=== PATIENT | female | born 1980 | race Caucasian/White ===

== ENCOUNTER 2024-05-23 08:25 | Emergency (ER) | payer BC, SELFPAY ==
[2024-05-23 08:31] VITALS: BP 100/75
[2024-05-23 09:23] VITALS: BP 105/62
[2024-05-23 09:25] LABS: Urine Albumin 1+ (Neg - Trace); Urine Bilirubin Negative (Negative); Urine Character Clear (Clear); Urine Color Amber; Urine Glucose Negative (Negative); Urine Ketone Negative (Negative); Urine Leukocyte Negative (Negative); Urine Nitrite Positive (Negative); Urine Occult Blood 4+ (Negative); Urine Specific Gravity 1.025 (<1.030); Urine Urobilinogen 1+ (Neg - 1+)
[2024-05-23] MEDS: NSS 1000 IV (09:25)
[2024-05-23] MEDS: DILAUDID 1 MG IV (09:26)
[2024-05-23] MEDS: ZOFRAN 4 MG IV (09:26)
[2024-05-23 09:47] LABS: % Basophils 0.7 % (0-2); % Eosinophils 1.1 % (0-6); % Immature Granulocytes 0.3 % (0-0.5); % Monocytes 9.9 % (1.7-9.3); Absolute Basophils 0.1 10^3/uL (0-0.2); Absolute Eosinophils 0.1 10^3/uL (0-0.7); Absolute Lymphocytes 1.6 10^3/uL (1.2-3.4); Absolute Monocytes 0.7 10^3/uL (0.1-0.6); Absolute Neutrophils 4.9 10^3/uL (1.4-6.5); Hematocrit 36.3 % (37.0-47.0); Hemoglobin 12.5 g/dL (12.0-16.0); Mean Corp Hgb Conc. 34.4 g/dL (33.0-37.0); Mean Corpuscular Hgb 28.5 pg (27.0-31.0); Mean Corpuscular Volume 82.7 fL (81.0-99.0); Mean Platelet Volume 10.7 fL (7.4-10.4); Nucleated Red Blood Cells % 0 %; Platelet Count 198 10^3/uL (130-400); Red Blood Cell Count 4.39 10^6/uL (4.20-5.40); Red Cell Dist. Width 14.2 % (11.5-14.5); White Blood Cell Count 7.4 10^3/uL (4.8-10.8)
[2024-05-23 09:54] LABS: ALT (SGPT) 20 U/L (0-35); AST (SGOT) 29 U/L (14-36); Alkaline Phosphatase 144 U/L (38-126); Blood Urea Nitrogen 15 mg/dl (7-17); Calcium 9.9 mg/dl (8.4-10.2); Carbon Dioxide 24 mmol/L (22-30); Chloride 106 mmol/L (98-107); Glucose 115 mg/dl (70-99); Potassium 3.9 mmol/L (3.5-5.1); Sodium 141 mmol/L (135-145); Total Bilirubin 0.7 mg/dl (0.2-1.3); Total Protein 7.9 g/dl (6.3-8.2); eGFR > 60.00
[2024-05-23 10:00] VITALS: BP 93/49
[2024-05-23 10:10] LABS: Urine Squamous Cell 0-2 /LPF (Few)
[2024-05-23 10:13] LABS: Urine Mucus Moderate; Urine Red Blood Cell >100 /HPF (0-2)
[2024-05-23 10:14] LABS: Urine Bacteria Few (Negative)
[2024-05-23 10:14] LABS: Lipase 83 U/L (23-300)
--- NOTE | 2024-05-23 10:38 | ED.GENMED ---
History of Present Illness
General
Chief Complaint: Abdominal Symptoms
Source: patient
Exam Limitations: none
Time Seen by Provider: 05/23/24 09:09
Nursing documentation reviewed up to this point in time: agreed with
History of Present Illness
History of Present Illness:
43 yo female w h/o kidney stones, partial colon resection with colostomy then reversal 11/2023 presents for severe R flank and abdominal pain started mildly yesterday and at 5 a.m. suddenly worsened, now 12/03 with nausea and vomiting. Denies
fever/chills.
Past History
Past History
ED Past Medical History: Other (Kidney stones)
ED Past Surgical History: Bowel resection
Social History
Tobacco: Non-smoker
Alcohol: Occasional
Personal:
Living: with family
Review of Systems
Review of Systems
Allergies reviewed?: Yes
All Other Systems: ROS reviewed and negative except as documented in HPI and ROS
Constitutional: Denies fever or chills
Respiratory: Denies trouble breathing
Cardiac: Denies chest pain
ABD/GI: Reports abdominal pain, nausea and vomiting; Denies diarrhea or constipated
: Reports flank pain (Right); Denies dysuria, frequency or difficulty voiding
Musculoskeletal: Reports no symptoms
Skin: Reports no symptoms
Neurological: Reports no symptoms
Phy Exam
Physical Exam
Physical Exam:
GENERAL: Moderate distress due to pain. A&Ox3.
CONSTITUTIONAL: Afebrile.
EYES: clear, conjunctivae normal
ENMT: moist mucus membranes, Pharynx nl
RESPIRATORY: Regular respirations, nonlabored, lungs clear.
CARDIOVASCULAR: Regular rate and rhythm, no murmurs, no rubs.
GI: Soft, nontender, normal BS, Right flank tenderness
MUSCULOSKELETAL: Moves with ease. Well perfused.
SKIN: Warm, dry, pink
PSYCH:Anxious mood and affect. Well kept, interactive and appropriate
NEUROLOGIC: Awake, alert and oriented. No focal neurological deficits
Course
Orders/Labs/Results
Orders:
Orders
05/23/24 08:57
Urinalysis Reflex To Culture Urgent
Date Specimen was Collected: 05/23/24
Time Specimen was Collected: 08:56
Urine Microscopic Reflex Cult Urgent
Urine Culture Urgent
LEONELA Source: U
Specimen Description:
Date Specimen was Collected: 05/23/24
Time Specimen was Collected: 08:56
05/23/24 09:12
0.9% Sodium Chloride 1000 ml [Nss] 1,000 ml IV BOLUS
HYDROmorphone [Dilaudid] 1 mg IV NOW STA
Ondansetron Injectable [Zofran] 4 mg IV NOW STA
05/23/24 09:27
Complete Blood Count/With Diff Urgent
Comprehensive Metabolic Panel Urgent
Lipase Urgent
05/23/24 09:55
CT Abd/pel Without Iv Or Oral Urgent
Comment:
Reason For Exam: R flank pain hx stones, bowel resection
05/23/24 11:30
Tamsulosin [Flomax] 0.4 mg .ROUTE .STK-MED ONE
05/23/24 11:31
Tamsulosin [Flomax] 0.4 mg PO NOW STA
Abnormal Lab Results
05/23/24 05/23/24
08:57 09:27
Hct 36.3 L %
(37.0-47.0)
MPV 10.7 H fL
(7.4-10.4)
Absolute Monos (auto) 0.7 H 10^3/uL
(0.1-0.6)
Monocytes % 9.9 H %
(1.7-9.3)
Glucose 115 H mg/dl
(70-99)
Alkaline Phosphatase 144 H U/L
(38-126)
Ur Occult Blood Reflex 4+ A
(Negative)
Urine Nitrite (Reflex) Positive A
(Negative)
Urine RBC >100 A /HPF
(0-2)
Urine Bacteria (Reflex) Few A
(Negative)
Urine Albumin (Reflex) 1+ A
(Neg - Trace)
05/23/24 09:27
05/23/24 09:27
Vital Signs
Initial and Last Documented VS:
Initial Vital Signs
Temp Pulse Resp BP Pulse Ox
98.2 F 86 16 100/75 98
05/23/24 08:31 05/23/24 08:31 05/23/24 08:31 05/23/24 08:31 05/23/24 08:31
Last Documented Vital Signs
Temp Pulse Resp BP Pulse Ox
97.8 F 73 13 95/44 100
05/23/24 09:35 05/23/24 11:16 05/23/24 11:16 05/23/24 11:16 05/23/24 11:16
MDM/Problems Addressed
Differential Diagnosis Includes:
kidney/ureteral stone, UTI, bowel obstruction
MDM/Problems Addressed:
43 yo female w h/o kidney stones, partial colon resection with colostomy then reversal 11/2023 presents for severe R flank and abdominal pain started mildly yesterday and at 5 a.m. suddenly worsened, now 10/10 with nausea and vomiting. Denies
fever/chills.
CBC, CMP unremarkable
CT abdomen pelvis plain radiology report read: IMPRESSION:
2 mm right ureterovesical junction calculus. Mild to moderate dilation of the right ureter and pelvicalyceal system.
Small calcified gallstones are present, one within the gallbladder neck. Gallbladder is elongated although not distended in transverse dimension, and the gallbladder extends into the upper right pelvis. There is focal fluid along the inferior margin
of the liver and lateral to the gallbladder. The etiology for this fluid is uncertain, and please correlate with any symptoms that would suggest acute cholecystitis.
Evidence of previous bowel surgery. No gross evidence for bowel obstruction, limited evaluation without GI luminal contrast. No evidence for free intraperitoneal air.
11:00 AM:
After pain medication patient is pain-free and appears much more comfortable.
Discussed CAT scan findings with her and provided patient with a copy. She is aware she has gall stones. They have been discussed with her doctors. Liver functions are normal, she has no right upper quadrant pain, do not suspect acute cholecystitis
*Critical Care Note
Total Time (30-74mins, 75-104mins- exclusive of procedures): Not Applicable
ED Attending Note
-
Portions of this chart may have been created with voice recognition software.� Occasional wrong word or��sound alike� substitutions may have occurred due to the inherent limitations of voice recognition software.
Discharge Plan
Departure
Patient Disposition: Home (Routine Discharge)
Date of Disposition: 05/23/24
Time of Disposition: 11:12
Patient with high blood pressure during this ER visit?: No
Condition: Good
Discharge Problem:
Calculus of distal right ureter
Instructions: Kidney stones in adults
Referrals:
Alfredito Galvan Jr., MD [Active] - As needed
Rashaad Moreno DO [Family Provider] - Call in 1-3 days for appt
Activity Restrictions/Additional Instructions:
As we discussed, you had a 2 mm stone at the end of your ureter which most likely has dropped into the bladder by now,
You may strain your urine to see if you pass the stone.
Ibuprofen 600 mg, with food, every 6 hours as needed for pain. Call your family doctor tomorrow and ask when they want to see you for follow-up.
I have given you the name of a urologist to use if needed
Interventions
Interventions:
*Risk Screen - Suicide Last Done: 05/23/24 08:31
*General Assessment Last Done: 05/23/24 09:21
*Neglect/Abuse Screening Last Done: 05/23/24 08:31
*ED- Fall Risk Assessment Last Done: 05/23/24 09:21
*ED COVID-19 Vaccine History Last Done: 05/23/24 09:21
*Nursing Disposition Last Done: 05/23/24 11:42
[facility] Assessment Last Done: 05/23/24 09:21
Discharge Date and Time
Discharge Date/Time: 05/23/24 11:43
Print Language: [id number]
[2024-05-23 11:00] VITALS: BP 98/45
[2024-05-23 11:16] VITALS: BP 95/44
[2024-05-23] MEDS: FLOMAX 0.4 MG PO (11:33)
== END 2024-05-23 11:43 | disposition home or self-care (01) ==
LOC: EMR 08:25
PROVIDERS: Emergency Medicine; Registered Nurse; EMERGENCY PHYSICIAN Emergency Medicine; FAMILY PHYSICIAN Family Medicine
DX: N20.1 Calculus of ureter (principal); Z87.442 Personal history of urinary calculi; Z90.49 Acquired absence of other specified parts of digestive tract
CPT/HCPCS: 99284; 96374; 96375; 96361; 74176; 80053; 81003; 81015; 83690; 85025; 87086